=== PATIENT | female | born 1960 | race Caucasian/White ===

== ENCOUNTER → 2020-01-04 14:42 | Outpatient (CLI) | payer OTHER ==
[~2020-01-04 14:42] MED LIST: DICY20TA PO; IMODIUM A-D2 MG PO; INTESTINEX1 CA1 PO; METOCLOPRAMIDE10 MG PO; OMEPRAZOLE20 MG PO; PERCOCET 5/3251 TAB PO; PROTONIX40 MG PO; RANITIDINE HCL300 MG PO; TRAM1TAB PO
== END | disposition home or self-care (01) ==
LOC: LAB 14:42
PROVIDERS: ATTEND Internal Medicine Geriatric Medicine
DX: D69.49 Other primary thrombocytopenia (principal)

== ENCOUNTER 2023-01-30 14:55 | Emergency (ER) | payer OTHER ==
[~2023-01-30] VITALS: Ht 162.6 cm; Wt 68.0 kg
[2023-01-30 16:53] LABS: HEMATOCRIT 38.4 % (36.0-45.00); MEAN CELL VOLUME 88.3 fL (80.00-100.00); MEAN CORPUSCULAR HEMOGLOBIN 29.9 pg (27.00-32.0); MEAN CORPUSCULAR HGB CONC 33.8 g/dl (32.0-36.0); PLATELET COUNT 179 K/uL (150-450); RED BLOOD COUNT 4.35 M/uL (4.00-6.00); RED CELL DISTRIBUTION WIDTH 14.9 % (11.5-14.5)
[2023-01-30 17:32] LABS: CALCIUM 10.1 mg/dL (8.5-10.1); CREATININE SERUM 0.9 mg/dL (0.55-1.02); GFR 63.04; POTASSIUM 4.11 mEq/L (3.5-5.1)
[2023-01-30 18:07] LABS: PH,URINE 5.5 (5.0-8.0); URINE APPEARANCE Cloudy; URINE BILIRRUBIN Negative (NEGATIVE); URINE BLOOD Negative; URINE COLOR Yellow; URINE GLUCOSE Negative (NEGATIVE); URINE LEUKOCYTE Negative; URINE NITRATE Negative; URINE PROTEIN 30 (NEGATIVE); URINE UROBILINOGEN 0.2 E.U./dl
[2023-01-30 18:08] LABS: URINE BACTERIA 32.7 uL (0.0-1933); URINE EPITHELIAL CELLS 8.9 uL (0.0-38.8); URINE RBC 11.7 uL (0.0-20.8); URINE WBC 3.2 uL (0.0-23.2)
[2023-01-30] MEDS ORDERED: PEPCID AC20 MG PO (21:01)
[2023-01-30] MEDS ORDERED: ZOFRAN8 MG PO (21:01)
== END 2023-01-30 21:06 | disposition home or self-care (01) ==
LOC: ER 14:55
PROVIDERS: General Practice
DX: R10.9 Unspecified abdominal pain (principal)

== ENCOUNTER → 2023-05-13 07:05 | Outpatient (CLI) | payer OTHER ==
[~2023-05-13 07:05] MED LIST changes: +PEPCID AC20 MG PO; +ZOFRAN8 MG PO
[2023-05-13 07:50] LABS: HEMATOCRIT 34.6 % (36.0-45.00); HEMOGLOBIN 11.7 g/dL (12.0-15.00); MEAN CELL VOLUME 88.7 fL (80.00-100.00); MEAN CORPUSCULAR HEMOGLOBIN 30.1 pg (27.00-32.0); MEAN CORPUSCULAR HGB CONC 33.9 g/dl (32.0-36.0); PLATELET COUNT 174 K/uL (150-450); RED CELL DISTRIBUTION WIDTH 14.4 % (11.5-14.5)
[2023-05-13 08:23] LABS: ALBUMIN 3.6 gm/dL (3.4-5.0); BILIRUBIN TOTAL 0.37 mg/dL (0.3-1.2); CHOL HDL RATIO 4.3 (0-5.0); CREATININE SERUM 0.72 mg/dL (0.55-1.02); GFR 81.29; POTASSIUM 4.03 mEq/L (3.5-5.1); TOTAL PROTEIN 7.6 gm/dL (6.4-8.2); TSH 2.47 uIU/mL (0.358-3.74)
[2023-05-13 08:35] LABS: PH,URINE 5.5 (5.0-8.0); URINE APPEARANCE Clear; URINE BILIRRUBIN Negative (NEGATIVE); URINE BLOOD Negative; URINE COLOR Yellow; URINE GLUCOSE Negative (NEGATIVE); URINE LEUKOCYTE Trace; URINE NITRATE Negative; URINE PROTEIN Negative (NEGATIVE); URINE UROBILINOGEN 0.2 E.U./dl
[2023-05-13 08:36] LABS: URINE BACTERIA 28.9 uL (0.0-1933); URINE EPITHELIAL CELLS 5.2 uL (0.0-38.8); URINE RBC 2.7 uL (0.0-20.8); URINE WBC 7.7 uL (0.0-23.2)
== END | disposition home or self-care (01) ==
LOC: LAB 07:05
PROVIDERS: ATTEND Internal Medicine Geriatric Medicine
DX: D50.9 Iron deficiency anemia, unspecified (principal); E03.9 Hypothyroidism, unspecified; E78.2 Mixed hyperlipidemia; I11.9 Hypertensive heart disease without heart failure; E56.8 Deficiency of other vitamins; N39.0 Urinary tract infection, site not specified; Z12.11 Encounter for screening for malignant neoplasm of colon; R19.5 Other fecal abnormalities; E55.9 Vitamin D deficiency, unspecified; N19 Unspecified kidney failure; E11.9 Type 2 diabetes mellitus without complications

== ENCOUNTER 2023-07-02 07:19 | Outpatient (CLI) | payer OTHER | END 2023-07-02 07:26 | disposition home or self-care (01) | LOC: MRI 07:19 | PROVIDERS: ATTEND Physical Medicine & Rehabilitation | DX: M54.50 Low back pain, unspecified (principal) | CPT/HCPCS: 72148 ==

== ENCOUNTER 2023-08-06 08:44 | Outpatient (CLI) | payer OTHER ==
[2023-08-06 09:40] LABS: HEMATOCRIT 35.8 % (36.0-45.00); HEMOGLOBIN 11.9 g/dL (12.0-15.00); MEAN CELL VOLUME 89.3 fL (80.00-100.00); MEAN CORPUSCULAR HEMOGLOBIN 29.6 pg (27.00-32.0); MEAN CORPUSCULAR HGB CONC 33.1 g/dl (32.0-36.0); PLATELET COUNT 159 K/uL (150-450); RED BLOOD COUNT 4.01 M/uL (4.00-6.00); RED CELL DISTRIBUTION WIDTH 14.4 % (11.5-14.5)
[2023-08-06 10:11] LABS: ALBUMIN 4.1 gm/dL (3.4-5.0); BILIRUBIN TOTAL 0.44 mg/dL (0.3-1.2); CALCIUM 9.4 mg/dL (8.5-10.1); CHOL HDL RATIO 2.6 (0-5.0); CREATININE SERUM 0.91 mg/dL (0.55-1.02); GFR 62.04; GLOBULINA 4.2 G/DL (2.4-3.5); POTASSIUM 4.74 mEq/L (3.5-5.1); TOTAL PROTEIN 8.3 gm/dL (6.4-8.2); TSH 1.7 uIU/mL (0.358-3.74)
[2023-08-06 13:14] LABS: URINE APPEARANCE Clear; URINE BILIRRUBIN Negative (NEGATIVE); URINE BLOOD Negative; URINE COLOR Yellow; URINE GLUCOSE Negative (NEGATIVE); URINE LEUKOCYTE Negative; URINE NITRATE Negative; URINE PROTEIN Negative (NEGATIVE); URINE UROBILINOGEN 0.2 E.U./dl
[2023-08-06 13:18] LABS: URINE BACTERIA 12.5 uL (0.0-1933); URINE EPITHELIAL CELLS 1.5 uL (0.0-38.8); URINE RBC 3.1 uL (0.0-20.8)
[2023-08-06 13:30] LABS: URINE WBC 1.3 uL (0.0-23.2)
[2023-08-06 13:40] LABS: ob NEGATIVE (NEGATIVE)
== END 2023-08-06 08:45 | disposition home or self-care (01) ==
LOC: LAB 08:44
PROVIDERS: ATTEND Internal Medicine Geriatric Medicine
DX: D50.9 Iron deficiency anemia, unspecified (principal); E03.9 Hypothyroidism, unspecified; E78.2 Mixed hyperlipidemia; E11.9 Type 2 diabetes mellitus without complications; E56.8 Deficiency of other vitamins; N39.0 Urinary tract infection, site not specified; Z12.11 Encounter for screening for malignant neoplasm of colon; R19.5 Other fecal abnormalities; E55.9 Vitamin D deficiency, unspecified; N19 Unspecified kidney failure

== ENCOUNTER 2024-05-15 09:09 | Outpatient (CLI) | payer OTHER ==
[2024-05-15 09:41] LABS: HEMATOCRIT 34.1 % (36.0-45.00); HEMOGLOBIN 11.5 g/dL (12.0-15.00); MEAN CELL VOLUME 89.5 fL (80.00-100.00); MEAN CORPUSCULAR HEMOGLOBIN 30.2 pg (27.00-32.0); MEAN CORPUSCULAR HGB CONC 33.8 g/dl (32.0-36.0); PLATELET COUNT 158 K/uL (150-450); RED BLOOD COUNT 3.81 M/uL (4.00-6.00); RED CELL DISTRIBUTION WIDTH 14.6 % (11.5-14.5)
[2024-05-15 10:20] LABS: URINE APPEARANCE Clear; URINE BILIRRUBIN Negative (NEGATIVE); URINE BLOOD Negative; URINE COLOR Yellow; URINE GLUCOSE Negative (NEGATIVE); URINE KETONE Negative (NEGATIVE); URINE LEUKOCYTE Negative; URINE NITRATE Negative; URINE PROTEIN Negative (NEGATIVE); URINE UROBILINOGEN 0.2 E.U./dl
[2024-05-15 10:22] LABS: URINE BACTERIA 14.6 uL (0.0-1933); URINE EPITHELIAL CELLS 5.2 uL (0.0-38.8); URINE RBC 2.2 uL (0.0-20.8); URINE WBC 3.3 uL (0.0-23.2)
[2024-05-15 10:37] LABS: ALBUMIN 3.4 gm/dL (3.4-5.0); BILIRUBIN TOTAL 0.5 mg/dL (0.3-1.2); CALCIUM 8.9 mg/dL (8.5-10.1); CHOL HDL RATIO 2.4 (0-5.0); CREATININE SERUM 0.7 mg/dL (0.55-1.02); GFR 83.72; GLOBULINA 3.8 G/DL (2.4-3.5); POTASSIUM 4.29 mEq/L (3.5-5.1); TOTAL PROTEIN 7.2 gm/dL (6.4-8.2); TSH 1.09 uIU/mL (0.358-3.74)
== END 2024-05-15 09:19 | disposition home or self-care (01) ==
LOC: LAB 09:09
PROVIDERS: ATTEND Internal Medicine Geriatric Medicine
DX: D50.9 Iron deficiency anemia, unspecified (principal); E03.9 Hypothyroidism, unspecified; E78.2 Mixed hyperlipidemia; I11.9 Hypertensive heart disease without heart failure; E56.8 Deficiency of other vitamins; N39.0 Urinary tract infection, site not specified; Z12.11 Encounter for screening for malignant neoplasm of colon; R19.5 Other fecal abnormalities; E55.9 Vitamin D deficiency, unspecified; E11.9 Type 2 diabetes mellitus without complications; N19 Unspecified kidney failure

== ENCOUNTER 2025-02-08 06:08 | Outpatient (CLI) | payer OTHER ==
[2025-02-08 07:15] LABS: BASO % 1.1 % (0.1-1.2); EOS # 0.19 (0.04-0.54); EOS % 3.4 % (0.7-7.0); LYMPH # 1.42 (1.18-3.74); LYMPH % 25.3 % (19.3-53.1); MEAN PLATELET VOLUME 12.20 fl (9.4-12.4); MONO # 0.45 (0.24-0.82); MONO % 8.0 % (4.7-12.5); NEUT # 3.48 (1.56-6.13); NEUT % 62.0 % (34.0-71.1); RED CELL DISTRIBUTION WIDTH 14.1 % (11.6-14.4)
[2025-02-08 07:38] LABS: URINE APPEARANCE Clear; URINE BILIRRUBIN Negative (NEGATIVE); URINE BLOOD Negative; URINE COLOR Yellow; URINE GLUCOSE Negative (NEGATIVE); URINE KETONE Negative (NEGATIVE); URINE LEUKOCYTE Negative; URINE NITRATE Negative; URINE PROTEIN Negative (NEGATIVE); URINE UROBILINOGEN 0.2 E.U./dl
[2025-02-08 07:39] LABS: URINE BACTERIA 13.1 uL (0.0-1933); URINE EPITHELIAL CELLS 8.6 uL (0.0-38.8); URINE RBC 8.3 uL (0.0-20.8); URINE WBC 6.0 uL (0.0-23.2)
[2025-02-08 07:46] LABS: URINE CAST 0.00 uL (0.0-1.40)
[2025-02-08 08:16] LABS: ALT/SGPT 19.0 U/L (12-78); AST/SGOT 19.0 U/L (15-37); BILIRUBIN TOTAL 0.38 mg/dL (0.3-1.2); BUN CREA RATIO 27.0 (7.0-25.0); CHOL HDL RATIO 2.4 (0-5.0); CREATININE SERUM 0.66 mg/dL (0.55-1.02); GFR 89.6; GLOBULINA 3.4 G/DL (2.4-3.5); GLUCOSE FASTING 93.0 mg/dL (65-100); HDL 73.0 mg/dl (40-60); LDL 88.0 mg/dl (0-130); OSMOLALITY SERUM 285.0 MOSM/KG (275-295); TSH 2.94 uIU/mL (0.358-3.74); VLDL 14.0 (0-39)
== END 2025-02-08 06:14 | disposition home or self-care (01) ==
LOC: LAB 06:08
PROVIDERS: ATTEND Internal Medicine Geriatric Medicine
DX: D50.9 Iron deficiency anemia, unspecified (principal); E03.9 Hypothyroidism, unspecified; E78.2 Mixed hyperlipidemia; I11.9 Hypertensive heart disease without heart failure; E56.8 Deficiency of other vitamins; N39.0 Urinary tract infection, site not specified; Z12.11 Encounter for screening for malignant neoplasm of colon; R19.5 Other fecal abnormalities; E55.9 Vitamin D deficiency, unspecified; N19 Unspecified kidney failure; E11.9 Type 2 diabetes mellitus without complications; R80.9 Proteinuria, unspecified

== ENCOUNTER 2025-02-12 06:13 | Outpatient (CLI) | payer OTHER ==
[2025-02-12 10:05] LABS: ob NEGATIVE (NEGATIVE)
== END 2025-02-12 06:14 | disposition home or self-care (01) ==
LOC: LAB 06:13
PROVIDERS: ATTEND Internal Medicine Geriatric Medicine
DX: D50.9 Iron deficiency anemia, unspecified (principal); E03.9 Hypothyroidism, unspecified; E78.2 Mixed hyperlipidemia; I11.9 Hypertensive heart disease without heart failure; N39.0 Urinary tract infection, site not specified; E56.8 Deficiency of other vitamins; Z12.11 Encounter for screening for malignant neoplasm of colon; R19.5 Other fecal abnormalities; E55.9 Vitamin D deficiency, unspecified; N19 Unspecified kidney failure; E11.9 Type 2 diabetes mellitus without complications; R80.9 Proteinuria, unspecified; C18.9 Malignant neoplasm of colon, unspecified